=== PATIENT | male | born 1960 | race Caucasian/White ===

== ENCOUNTER → 2016-12-27 | Outpatient (REF) | payer MEDICAID ==
[2016-12-27 11:02] LABS: ALBUMIN 2.4 g/dL (3.4-5.0); ANION GAP 11.5 MEQ/L (3-15)
[2016-12-27 12:42] LABS: MEAN CORPUSCULAR HGB CONC 34.3 g/dL (31.0-37.0); MEAN CORPUSCULAR VOLUME 96 FL (80-100); MEAN PLATELET VOLUME 8.4 FL (6.0-9.5); PLATELET COUNT 274 10^3uL (150-450); WHITE BLOOD COUNT 12.06 10^3uL (4.0-11.0)
[2016-12-27 13:06] LABS: MEAN CORPUSCULAR HEMOGLOBIN 32.9 PG (26.0-34.0)
[2016-12-27 13:59] LABS: BAND NEUTROPHILS % 0 % (0-6); EOSINOPHILS % 8 % (0-4); LYMPHOCYTES # 1.1 #; MONOCYTES # 0.7 #; MONOCYTES % 6 % (3-11); RBC MORPH NORMAL (NORMAL); SEGMENTED NEUTROPHILS % 77 % (51-67); TOTAL CELLS COUNTED 100
== END ==
LOC: LAB 09:37
PROVIDERS: ATTEND Family Medicine
DX: D64.9 Anemia, unspecified (principal); N19 Unspecified kidney failure
CPT/HCPCS: 80069; 85007; 85027

== ENCOUNTER 2017-01-05 02:25 | Emergency (ER) | payer MEDICAID ==
[~2017-01-05] VITALS: Ht 188 cm; Wt 78.9 kg
[2017-01-05] MEDS ORDERED: SODIUM CHLORIDE FLUSH 3 ML SYR IV PRN (02:45)
[2017-01-05] MEDS ORDERED: NALOXONE 0.4 MG/ML (NARCAN) 1 ML VIAL IV ONE (02:45)
[2017-01-05] MEDS ORDERED: SODIUM CHLORIDE FLUSH 10 ML SYR IV PRN (02:45)
[2017-01-05 02:59] LABS: MEAN CORPUSCULAR VOLUME 93 FL (80-100); PLATELET COUNT 248 10^3uL (150-450); WHITE BLOOD COUNT 16.08 10^3uL (4.0-11.0)
--- NOTE | 2017-01-05 03:00 | NUR ---
PATIENT CAME FROM WITH STAGE 2 FRICTION ULCER ON SACRUM / COCCYX AREA. THE AREA IS 3 CM LONG BY 2.8 CM WIDE WITH TOP LAYER OF SKIN SHEARED OFF. HAS SOME SPOTS THAT ARE BLEEDING.
[2017-01-05 03:04] LABS: MEAN CORPUSCULAR HGB CONC 36.6 g/dL (31.0-37.0)
[2017-01-05 03:11] LABS: ALBUMIN 2.8 g/dL (3.4-5.0); ANION GAP 15.1 MEQ/L (3-15); CALCULATED IONIZED CALCIUM 3.9 mg/dL (3.8-4.6); TOTAL PROTEIN 7.3 g/dL (6.4-8.5)
[2017-01-05 03:16] LABS: BILIRUBIN,URINE Negative (Negative); CLARITY,URINE Clear; COLOR,URINE Yellow; GLUCOSE, URINE (UA) Negative (Negative); LEUKOCYTE ESTERASE ,URINE Negative (Negative); PH,URINE 7.5 (5.0 - 8.0); UROBILINOGEN,URINE 0.2 mg/dL (0.2-1.0)
[2017-01-05 03:38] LABS: AMPHETAMINE SCREEN, URINE Negative (Negative); CANNABINOID SCREEN, URINE Negative (Negative); METHAMPHETAMINE SCREEN URINE S NEGATIVE (NEGATIVE); OPIATE SCREEN URINE Negative (Negative); PROPOXYPHENE STAT NEGATIVE (NEGATIVE)
--- NOTE | 2017-01-05 03:57 | NUR ---
VITAL SIGNS TIME B/P P O2 0227 102/70 0230 106/66 98 0235 109/69 101 0245 109/66 610 36 0197 108/69 761 15 2059 111/77 524 07 8781 94/75 105 0340 100/75 0345 101/64 103
[2017-01-05 03:58] LABS: EOSINOPHILS % 2 % (0-4); LYMPHOCYTES # 1.6 #; MONOCYTES # 0.5 #; MONOCYTES % 3 % (3-11); SEGMENTED NEUTROPHILS % 85 % (51-67); TOTAL CELLS COUNTED 100
[2017-01-05 03:59] LABS: HYPERSEGMENTED NEUT SLIGHT; HYPOCHROMASIA 1+; RBC MORPH SEE REFERENCE (NORMAL)
[2017-01-05 04:00] LABS: POIKILOCYTOSIS SLIGHT; TOXIC GRANULATION/VACUOLAZATIO SLIGHT
--- NOTE | 2017-01-05 04:02 | NUR ---
DR OROZCO SPOKE TO [facility] ABOUT POSSIBLE ADMIT HERE BUT HOSPITALIST IS NOT ACCEPTING ANY MORE PATIENTS TONIGHT. SO HE PLACED CALL TO [facility]
--- NOTE | 2017-01-05 04:47 | NUR ---
NOTIFIED [facility] NURSE SIS LANGLEY OF PT BEING TRANSFERED TO [facility]
[2017-01-05 05:01] VITALS: BP 94/58
--- NOTE | 2017-01-05 05:06 | NUR ---
R ARM SLING IS ON PATIENT WITH DISCHARGE.
[2017-01-05] MEDS ORDERED: ALBUTEROL 0.083% NEB SOLUTION 2.5 MG/3 ML VIAL INH ONE (13:05)
== END 2017-01-05 06:59 | disposition short-term general hospital (02) ==
LOC: EDUNIT# 02:25 → ED 02:26
DX: K72.00 Acute and subacute hepatic failure without coma (principal)
CPT/HCPCS: 36415; 51702; 70450; 71010; 80053; 81003; 82140; 83605; 85025; 85610; 85730; 96374; 99285; G0478; J2310; 80307

== ENCOUNTER → 2017-01-05 | Outpatient (CLI) | payer MEDICAID | LOC: EMS 02:20 | PROVIDERS: ATTEND Family Medicine | DX: K72.90 Hepatic failure, unspecified without coma (principal); R41.82 Altered mental status, unspecified ==

== ENCOUNTER 2017-01-16 12:38 | Emergency (ER) | payer MEDICAID ==
[~2017-01-16] VITALS: Ht 188 cm; Wt 78.9 kg
[2017-01-16 13:57] LABS: MEAN CORPUSCULAR VOLUME 93 FL (80-100); MEAN PLATELET VOLUME 8.4 FL (6.0-9.5); PLATELET COUNT 205 10^3uL (150-450)
[2017-01-16 14:08] LABS: WHITE BLOOD COUNT 30.73 10^3uL (4.0-11.0)
[2017-01-16 14:09] LABS: MEAN CORPUSCULAR HEMOGLOBIN 34.2 PG (26.0-34.0); MEAN CORPUSCULAR HGB CONC 36.9 g/dL (31.0-37.0)
[2017-01-16 14:15] LABS: ALBUMIN 2.4 g/dL (3.4-5.0); ALKALINE PHOSPHATASE 206 U/L (38-126); BUN/CREATININE RATIO 12 (10-20); CREATINE KINASE 22 U/L (55-170); TOTAL PROTEIN 6.7 g/dL (6.4-8.5)
[2017-01-16 14:33] LABS: ANISOCYTOSIS MODERATE; BAND NEUTROPHILS % 0 % (0-6); EOSINOPHILS % 2 % (0-4); LYMPHOCYTES # 2.2 #; MONOCYTES # 1.5 #; MONOCYTES % 5 % (3-11); POLYCHROMASIA SLIGHT; RBC MORPH SEE REFERENCE (NORMAL); SEGMENTED NEUTROPHILS % 84 % (51-67); TOTAL CELLS COUNTED 100
[2017-01-16 14:34] LABS: TOXIC GRANULATION/VACUOLAZATIO SLIGHT
[2017-01-16 14:35] LABS: ROULEAUX SLIGHT
[2017-01-16 15:09] LABS: COLOR,URINE Yellow; GLUCOSE, URINE (UA) Negative (Negative); LEUKOCYTE ESTERASE ,URINE 3+ (Negative); PH,URINE 8.5 (5.0 - 8.0); UROBILINOGEN,URINE 0.2 mg/dL (0.2-1.0)
[2017-01-16] MEDS ORDERED: SODIUM CHLORIDE FLUSH 3 ML SYR IV ONE (15:10)
[2017-01-16] MEDS ORDERED: HYDROmorphone 1 MG/ML (DILAUDID) SYRINGE IV ONE (15:10)
[2017-01-16] MEDS ORDERED: ONDANSETRON 2 MG/ML (Z0FRAN) 2 ML VIAL IV ONE (15:10)
[2017-01-16] MEDS ORDERED: NS IV 500 ML 500 ML IV SCH (15:10)
[2017-01-16] MEDS ORDERED: SODIUM CHLORIDE FLUSH 10 ML SYR IV PRN (15:10)
[2017-01-16 15:12] LABS: BILIRUBIN,URINE 1+ (Negative); CLARITY,URINE Slightly Cloudy
[2017-01-16 15:18] LABS: URINE CENTRIFUGED VOLUME 10 mL
[2017-01-16 15:27] LABS: AMPHETAMINE SCREEN, URINE Negative (Negative); CANNABINOID SCREEN, URINE Negative (Negative); METHAMPHETAMINE SCREEN URINE S NEGATIVE (NEGATIVE); OPIATE SCREEN URINE Negative (Negative); PROPOXYPHENE STAT NEGATIVE (NEGATIVE)
[2017-01-16 15:59] VITALS: BP 91/55
== END 2017-01-16 16:14 | disposition home or self-care (01) ==
LOC: ED 12:39
DX: K72.90 Hepatic failure, unspecified without coma (principal)
CPT/HCPCS: 36415; 80053; 81003; 81015; 82140; 82550; 82553; 83605; 83615; 83880; 84443; 84484; 85025; 85610; 86140; 87088; 96361; 96374; 96375; 99284; G0478; J1170; J2405; J7040; 80307; 87077; 87186

== ENCOUNTER → 2017-01-16 | Outpatient (CLI) | payer MEDICAID | LOC: EMS 12:25 | PROVIDERS: ATTEND Family Medicine | DX: Z51.5 Encounter for palliative care (principal) ==